=== PATIENT | female | born 1940 | race Two or more races ===

== ENCOUNTER 2020-01-15 06:00 | Day surgery (SDC) | payer OTHER | END 2020-01-15 11:00 | disposition home or self-care (01) | LOC: AMB-ENDOS 06:00 | PROVIDERS: ATTEND Surgery | DX: K62.89 Other specified diseases of anus and rectum (principal); Z20.828 Contact with and (suspected) exposure to other viral communicable diseases ==

== ENCOUNTER 2020-09-17 10:08 | Emergency (ER) | payer OTHER ==
[~2020-09-17] VITALS: Ht 152.4 cm; Wt 45.4 kg
[2020-09-17] MEDS ORDERED: AVAPRO75 MG (10:15)
== END 2020-09-17 18:48 | disposition home or self-care (01) ==
LOC: ER 10:08
DX: R53.1 Weakness (principal)

== ENCOUNTER 2020-09-23 08:35 | Emergency (ER) | payer OTHER ==
[~2020-09-23] VITALS: Ht 152.4 cm; Wt 45.4 kg
[~2020-09-23 08:35] MED LIST: AVAPRO75 MG
== END 2020-09-23 14:08 | disposition home or self-care (01) ==
LOC: ER 08:35
DX: R53.1 Weakness (principal); R42 Dizziness and giddiness; Z03.818 Encounter for observation for suspected exposure to other biological agents ruled out

== ENCOUNTER 2020-12-27 09:50 | Outpatient (CLI) | payer OTHER | END 2020-12-27 09:59 | disposition home or self-care (01) | LOC: TOM 09:50 | PROVIDERS: ATTEND Otolaryngology Otolaryngology/Facial Plastic Surgery | DX: J32.4 Chronic pansinusitis (principal); H92.01 Otalgia, right ear ==

== ENCOUNTER 2021-05-16 20:54 | Emergency (ER) | payer OTHER ==
[~2021-05-16] VITALS: Ht 152.4 cm; Wt 46.7 kg
[2021-05-16] MEDS ORDERED: VASOTEC5 MG (21:04)
== END 2021-05-17 01:50 ==
LOC: ER 20:54
DX: R25.2 Cramp and spasm (principal); M79.662 Pain in left lower leg; I10 Essential (primary) hypertension; Z88.8 Allergy status to other drugs, medicaments and biological substances

== ENCOUNTER 2021-07-11 07:23 | Outpatient (CLI) | payer OTHER ==
[~2021-07-11 07:23] MED LIST changes: +VASOTEC5 MG
== END 2021-07-11 07:28 | disposition home or self-care (01) ==
LOC: SONOGRAMA 07:23
PROVIDERS: ATTEND General Practice
DX: Z00.8 Encounter for other general examination (principal); R10.10 Upper abdominal pain, unspecified

== ENCOUNTER → 2021-09-02 | Outpatient (CLI) | payer OTHER | END | disposition home or self-care (01) | LOC: SONOGRAMA 11:28 | DX: E04.2 Nontoxic multinodular goiter (principal); I10 Essential (primary) hypertension; E78.00 Pure hypercholesterolemia, unspecified ==

== ENCOUNTER 2021-11-13 14:16 | Outpatient (CLI) | payer OTHER | END 2021-11-13 14:19 | disposition home or self-care (01) | LOC: SONOGRAMA 14:16 | PROVIDERS: ATTEND Pathology Anatomic Pathology & Clinical Pathology | DX: D34 Benign neoplasm of thyroid gland (principal); E04.9 Nontoxic goiter, unspecified; E04.2 Nontoxic multinodular goiter ==

== ENCOUNTER 2022-05-08 10:00 | Outpatient (CLI) | payer OTHER | END 2022-05-08 10:13 | disposition home or self-care (01) | LOC: SONOGRAMA 10:00 | PROVIDERS: ATTEND Internal Medicine | DX: E04.2 Nontoxic multinodular goiter (principal) ==

== ENCOUNTER 2022-07-09 07:36 | Outpatient (CLI) | payer OTHER | END 2022-07-09 07:43 | disposition home or self-care (01) | LOC: RX STUDY 07:36 | DX: I10 Essential (primary) hypertension (principal); K30 Functional dyspepsia ==

== ENCOUNTER → 2022-10-20 | Outpatient (CLI) | payer OTHER | END | disposition home or self-care (01) | LOC: TOM 10:31 | PROVIDERS: ATTEND Psychiatry & Neurology Clinical Neurophysiology | DX: R06.02 Shortness of breath (principal); R51.9 Headache, unspecified ==

== ENCOUNTER 2022-10-28 10:12 | Outpatient (CLI) | payer OTHER | END 2022-10-28 10:16 | disposition home or self-care (01) | LOC: SONOGRAMA 10:12 | PROVIDERS: ATTEND Internal Medicine | DX: E04.2 Nontoxic multinodular goiter (principal) ==

== ENCOUNTER 2023-01-05 11:12 | Outpatient (CLI) | payer OTHER | END 2023-01-05 11:19 | disposition home or self-care (01) | LOC: TOM 11:12 | PROVIDERS: ATTEND Internal Medicine | DX: M54.2 Cervicalgia (principal) ==

== ENCOUNTER 2023-02-05 15:46 | Emergency (ER) | payer OTHER ==
[~2023-02-05] VITALS: Ht 152.4 cm; Wt 68.0 kg
[2023-02-05 18:23] LABS: HEMATOCRIT 41.6 % (36.0-45.00); HEMOGLOBIN 14.2 g/dL (12.0-15.00); MEAN CELL VOLUME 86.3 fL (80.00-100.00); MEAN CORPUSCULAR HEMOGLOBIN 29.4 pg (27.00-32.0); MEAN CORPUSCULAR HGB CONC 34.1 g/dl (32.0-36.0); PLATELET COUNT 264 K/uL (150-450); RED BLOOD COUNT 4.81 M/uL (4.00-6.00); RED CELL DISTRIBUTION WIDTH 14.1 % (11.5-14.5)
[2023-02-05 18:46] LABS: CALCIUM 9.5 mg/dL (8.5-10.1); CREATININE SERUM 0.73 mg/dL (0.55-1.02); GFR 75.95; POTASSIUM 3.67 mEq/L (3.5-5.1)
[2023-02-05 18:56] LABS: URINE APPEARANCE Cloudy; URINE BILIRRUBIN Negative (NEGATIVE); URINE BLOOD Small; URINE COLOR Yellow; URINE GLUCOSE Negative (NEGATIVE); URINE LEUKOCYTE Negative; URINE NITRATE Negative; URINE PROTEIN Negative (NEGATIVE); URINE UROBILINOGEN 0.2 E.U./dl
[2023-02-05 19:00] LABS: URINE BACTERIA 8.8 uL (0.0-1933); URINE WBC 2.1 uL (0.0-23.2)
[2023-02-05 19:15] LABS: URINE EPITHELIAL CELLS 0.3 uL (0.0-38.8)
== END 2023-02-05 22:30 | disposition home or self-care (01) ==
LOC: ER 15:46
PROVIDERS: General Practice
DX: R07.89 Other chest pain (principal); F41.9 Anxiety disorder, unspecified; I10 Essential (primary) hypertension; Z88.8 Allergy status to other drugs, medicaments and biological substances
CPT/HCPCS: 36415; 70450; 71045; 93005; 96365; 96366; 99284; J3490

== ENCOUNTER 2023-10-19 07:36 | Emergency (ER) | payer OTHER ==
[~2023-10-19] VITALS: Ht 152.4 cm; Wt 44.5 kg
[2023-10-19] MEDS ORDERED: GUAIFENESIN/DEXTROMETHORPHAN 5ML BLIST.PACK PO ONE (08:15)
[2023-10-19] MEDS ORDERED: ONDANSETRON HCL 2 MG/ML VIAL IV ONE (08:15)
[2023-10-19] MEDS ORDERED: 0.9 % SODIUM CHLORIDE 1,000 ML IV SCH (08:15)
[2023-10-19 09:02] LABS: HEMATOCRIT 37.8 % (36.0-45.00); HEMOGLOBIN 13.3 g/dL (12.0-15.00); MEAN CELL VOLUME 87.1 fL (80.00-100.00); MEAN CORPUSCULAR HEMOGLOBIN 30.5 pg (27.00-32.0); MEAN CORPUSCULAR HGB CONC 35.1 g/dl (32.0-36.0); PLATELET COUNT 266 K/uL (150-450); RED BLOOD COUNT 4.34 M/uL (4.00-6.00); RED CELL DISTRIBUTION WIDTH 13.6 % (11.5-14.5)
[2023-10-19 09:10] LABS: ALBUMIN 3.9 gm/dL (3.4-5.0); BILIRUBIN TOTAL 0.83 mg/dL (0.3-1.2); CALCIUM 9.4 mg/dL (8.5-10.1); CREATININE SERUM 0.71 mg/dL (0.55-1.02); GFR 78.24; GLOBULINA 3.4 G/DL (2.4-3.5); POTASSIUM 3.65 mEq/L (3.5-5.1); TOTAL PROTEIN 7.3 gm/dL (6.4-8.2)
[2023-10-19 10:28] LABS: PH,URINE 8.5 (5.0-8.0); URINE APPEARANCE Clear; URINE BILIRRUBIN Negative (NEGATIVE); URINE COLOR Yellow; URINE GLUCOSE Negative (NEGATIVE); URINE KETONE Trace (NEGATIVE); URINE LEUKOCYTE Trace; URINE NITRATE Negative; URINE PROTEIN Negative (NEGATIVE); URINE UROBILINOGEN 0.2 E.U./dl
[2023-10-19 10:32] LABS: URINE BACTERIA 30.2 uL (0.0-1933); URINE EPITHELIAL CELLS 2.9 uL (0.0-38.8); URINE WBC 23.1 uL (0.0-23.2)
[2023-10-19 10:39] LABS: URINE BLOOD Trace; URINE CAST 0.15 uL (0.0-1.40)
== END 2023-10-19 13:00 | disposition home or self-care (01) ==
LOC: ER 07:36
PROVIDERS: Emergency Medicine
DX: E86.0 Dehydration (principal); F41.9 Anxiety disorder, unspecified; Z88.5 Allergy status to narcotic agent; Z88.6 Allergy status to analgesic agent
CPT/HCPCS: 36415; 96365; 96366; 99282; J2405; J7030

== ENCOUNTER 2023-11-02 12:17 | Outpatient (CLI) | payer OTHER | END 2023-11-02 12:27 | disposition home or self-care (01) | LOC: SONOGRAMA 12:17 | PROVIDERS: ATTEND Urology | DX: N20.0 Calculus of kidney (principal) ==

== ENCOUNTER 2023-12-12 00:56 | Emergency (ER) | payer OTHER ==
[~2023-12-12] VITALS: Ht 149.9 cm; Wt 45.4 kg
[2023-12-12] MEDS ORDERED: CLONAZEPAM0.5 MG PO (01:11)
[2023-12-12] MEDS ORDERED: DEXAMETHASONE SODIUM PHOSPHATE 4 MG/ML VIAL IM ONE (01:45)
[2023-12-12] MEDS ORDERED: 0.9 % SODIUM CHLORIDE 1,000 ML IV SCH (01:45)
[2023-12-12] MEDS ORDERED: BUTALB/ACETAMINOPHEN/CAFFEINE 1 TAB TABLET PO ONE (01:45)
[2023-12-12 02:26] LABS: HEMATOCRIT 38.3 % (36.0-45.00); HEMOGLOBIN 13.1 g/dL (12.0-15.00); MEAN CELL VOLUME 88.1 fL (80.00-100.00); MEAN CORPUSCULAR HEMOGLOBIN 30.2 pg (27.00-32.0); MEAN CORPUSCULAR HGB CONC 34.3 g/dl (32.0-36.0); PLATELET COUNT 263 K/uL (150-450); RED BLOOD COUNT 4.35 M/uL (4.00-6.00); RED CELL DISTRIBUTION WIDTH 13.5 % (11.5-14.5)
[2023-12-12 02:47] LABS: ALBUMIN 3.7 gm/dL (3.4-5.0); BILIRUBIN TOTAL 1.08 mg/dL (0.3-1.2); CALCIUM 9.5 mg/dL (8.5-10.1); CREATININE SERUM 0.57 mg/dL (0.55-1.02); GFR 100.81; GLOBULINA 3.3 G/DL (2.4-3.5); POTASSIUM 5.3 mEq/L (3.5-5.1)
[2023-12-12 04:05] LABS: PH,URINE 7.5 (5.0-8.0); URINE APPEARANCE Clear; URINE BILIRRUBIN Negative (NEGATIVE); URINE BLOOD Negative; URINE COLOR Yellow; URINE GLUCOSE Negative (NEGATIVE); URINE KETONE Negative (NEGATIVE); URINE LEUKOCYTE Trace; URINE NITRATE Negative; URINE PROTEIN Negative (NEGATIVE); URINE UROBILINOGEN 0.2 E.U./dl
[2023-12-12 04:09] LABS: URINE RBC 29.9 uL (0.0-20.8); URINE WBC 15.1 uL (0.0-23.2)
[2023-12-12 04:28] LABS: URINE EPITHELIAL CELLS 0.7 uL (0.0-38.8)
== END 2023-12-12 05:15 | disposition home or self-care (01) ==
LOC: ER 00:56
PROVIDERS: General Practice
DX: R51.9 Headache, unspecified (principal); Z20.822 Contact with and (suspected) exposure to COVID-19; Z88.5 Allergy status to narcotic agent; Z88.6 Allergy status to analgesic agent
CPT/HCPCS: 36415; 51702; 70450; 96365; 96366; 96372; 99284; J1100; J7030

== ENCOUNTER 2024-01-17 12:56 | Outpatient (CLI) | payer OTHER ==
[~2024-01-17 12:56] MED LIST changes: +CLONAZEPAM0.5 MG PO
== END 2024-01-17 13:10 | disposition home or self-care (01) ==
LOC: SONOGRAMA 12:56
PROVIDERS: ATTEND Internal Medicine
DX: E04.2 Nontoxic multinodular goiter (principal)

== ENCOUNTER 2024-03-09 06:35 | Emergency (ER) | payer OTHER ==
[~2024-03-09] VITALS: Ht 152.4 cm; Wt 45.4 kg
[2024-03-09 06:40] VITALS: BP 152/68; O2SAT 99
[2024-03-09] MEDS ORDERED: SYNTHROID50 MCG PO (06:41)
[2024-03-09] MEDS ORDERED: ACID REDUCER20 M1 PO (06:41)
[2024-03-09] MEDS ORDERED: KETOROLAC TROMETHAMINE 30 MG VIAL IV ONE (08:30)
== END 2024-03-09 09:48 | disposition home or self-care (01) ==
LOC: ER 06:35
DX: M26.609 Unspecified temporomandibular joint disorder, unspecified side (principal); I10 Essential (primary) hypertension; Z88.5 Allergy status to narcotic agent
CPT/HCPCS: 96365; 99282; J1885

== ENCOUNTER 2024-03-16 13:50 | Outpatient (CLI) | payer OTHER ==
[~2024-03-16 13:50] MED LIST changes: +ACID REDUCER20 M1 PO; +SYNTHROID50 MCG PO
== END 2024-03-16 13:57 | disposition home or self-care (01) ==
LOC: RAD 13:50
PROVIDERS: ATTEND Internal Medicine Pulmonary Disease
DX: J01.90 Acute sinusitis, unspecified (principal); J44.9 Chronic obstructive pulmonary disease, unspecified; J47.9 Bronchiectasis, uncomplicated; A31.0 Pulmonary mycobacterial infection

== ENCOUNTER 2024-04-24 10:35 | Outpatient (CLI) | payer OTHER | END 2024-04-24 10:52 | disposition home or self-care (01) | LOC: TOM 10:35 | DX: R06.00 Dyspnea, unspecified (principal); R05.9 Cough, unspecified; J98.4 Other disorders of lung; J44.9 Chronic obstructive pulmonary disease, unspecified; A31.0 Pulmonary mycobacterial infection ==

== ENCOUNTER 2024-05-01 07:22 | Outpatient (CLI) | payer OTHER | END 2024-05-01 07:35 | disposition home or self-care (01) | LOC: TOM 07:22 | PROVIDERS: ATTEND Internal Medicine | DX: R10.9 Unspecified abdominal pain (principal) ==

== ENCOUNTER 2025-02-17 09:12 | Emergency (ER) | payer OTHER ==
[~2025-02-17] VITALS: Ht 154.9 cm; Wt 45.4 kg
[2025-02-17 10:42] LABS: BASO % 0.4 % (0.1-1.2); EOS # 0.21 (0.04-0.54); EOS % 2.2 % (0.7-7.0); LYMPH # 0.91 (1.18-3.74); LYMPH % 9.5 % (19.3-53.1); MEAN PLATELET VOLUME 10.70 fl (9.4-12.4); MONO # 0.47 (0.24-0.82); MONO % 4.9 % (4.7-12.5); NEUT # 7.91 (1.56-6.13); NEUT % 82.8 % (34.0-71.1); RED CELL DISTRIBUTION WIDTH 12.8 % (11.6-14.4)
[2025-02-17 11:21] LABS: ALT/SGPT 22.0 U/L (12-78); AST/SGOT 22.0 U/L (15-37); BILIRUBIN TOTAL 1.2 mg/dL (0.3-1.2); BUN CREA RATIO 27.0 (7.0-25.0); CREATININE SERUM 0.51 mg/dL (0.55-1.02); GFR 114.34; GLOBULINA 3.5 G/DL (2.4-3.5); GLUCOSE FASTING 100.0 mg/dL (65-100); OSMOLALITY SERUM 276.0 MOSM/KG (275-295)
[2025-02-17] MEDS ORDERED: KETOROLAC TROMETHAMINE 15 MG VIAL IV STA (11:58)
[2025-02-17] MEDS ORDERED: KETOROLAC TROMETHAMINE 30 MG VIAL ONE (12:15)
== END 2025-02-17 16:48 | disposition home or self-care (01) ==
LOC: ER 09:12
PROVIDERS: General Practice
DX: S42.034A Nondisplaced fracture of lateral end of right clavicle, initial encounter for closed fracture (principal); M25.562 Pain in left knee; M25.561 Pain in right knee; M79.621 Pain in right upper arm; Z88.8 Allergy status to other drugs, medicaments and biological substances; W18.39XA Other fall on same level, initial encounter; Y93.89 Activity, other specified; Y92.018 Other place in single-family (private) house as the place of occurrence of the external cause; J44.9 Chronic obstructive pulmonary disease, unspecified